=== PATIENT | female | born 1980 | race African-American/Black ===

== ENCOUNTER 2017-12-28 09:27 | Day surgery (SDC) | payer OTHER ==
[2017-12-28] MEDS ORDERED: Acetaminophen 500 MG TAB PO PRN (09:36)
[2017-12-28 10:27] VITALS: BMI 26.0
[2017-12-28] MEDS ORDERED: FLU VACC QS2017-18 36 mo. & older 0.5 ML SYRINGE IM ONE (10:45)
[2017-12-28] MEDS ORDERED: Iron Sucrose Complex 500 MG in Sodium Chloride 0.9% 250 ML 250 ML IVPB SCH (11:00)
== END 2017-12-28 14:30 | disposition home or self-care (01) ==
LOC: L&D 09:27 → L&D/OP 09:27
PROVIDERS: ATTEND Emergency Medicine
DX: O99.019 Anemia complicating pregnancy, unspecified trimester (principal); O09.519 Supervision of elderly primigravida, unspecified trimester; Z3A.00 Weeks of gestation of pregnancy not specified
CPT/HCPCS: J1756; J7050

== ENCOUNTER 2018-01-13 08:52 | Day surgery (SDC) | payer OTHER ==
[2018-01-13] MEDS ORDERED: Acetaminophen 500 MG TAB PO SCH (09:15)
[2018-01-13] MEDS ORDERED: Iron Sucrose Complex 500 MG, Admixture Fee 1 EACH in Sodium Chloride 0.9% 250 ML 250 ML IVPB SCH (09:45)
[2018-01-13] MEDS ORDERED: Iron, Sodium Ferric Gluconate 250 MG, Admixture Fee 1 EACH in Sodium Chloride 0.9% 250 ... IVPB SCH (10:00)
[2018-01-13 10:15] VITALS: BMI 26.5
[2018-01-13 10:41] VITALS: BP 109/69; TEMP 98.7
[2018-01-13] MEDS ORDERED: Sodium Chloride 0.9% 1,000 ML IV SCH (11:15)
--- NOTE | 2018-01-13 14:30 | PDOC.LDHP ---
Labor and Delivery H&P Chief complaint: other (scheduled iron infusion) HPI: Patient is a 37yo [id number] by at 35.3 by 8w u/s presents for iron infusion. Patient was found to have Hg of 8.4 on 01/10 at clinic and scheduled for iron infusion. Patient is taking PO Fe and PNV. Today denies VB, LOF, decreased movement, and vaginal discharge. Reports generalized fatigue. Current gestational age (weeks): 35 (3days) Due date: 02/14/18 Dating criteria: first trimester ultrasound Grav: 7 Para: 6 OB History Details: 6 prior in [facility], no reported complications Current complications: other (anemia of , late to care) Abnormal US findings: No Past Medical History: None Current medications: pre- vitamins, iron Previous surgical history: none Social history: none - Physical Exam Vital signs reviewed and normal: yes General: NAD, resting Heart: RRR Lungs: CTAB Abdomen: NTTP Extremeties: no edema FHT: category 2, variable decelerations, variability present [place] contractions every: baseline 140, moderate varibility, 2 isolated variable decels, +accels - Assessment Patient is a 37yo [id number] by at 35.3 by 8w u/s presents for iron infusion. - Give Fe infusion and continue to monitor. - Patient had 2 isolated variable decelerations, will get BPP to evaluate. <Verenice Rojas - Last Filed: 01/13/18 14:24> <Tommie Song - Last Filed: 02/12/18 13:08> Allergies/Adverse Reactions: Allergies Allergy/AdvReac Type Severity Reaction Status Date / Time No Known Allergies Allergy Verified 02/08/18 11:46 Attending Addendum - Attending Addendum Date/Time: 02/12/18 1305 I personally evaluated the patient and discussed the management with Dr. Rojas on 01/13/18 I agree with the History, Examination, Assessment and Plan documented above with any addition or exceptions noted below. 37yo by at 35.3 by 8w US here for iron infusion for 3rd trimester anemia. <Tommie Song - Last Filed: 02/12/18 13:08>
--- NOTE | 2018-01-13 15:42 | ULT ---
BIOPHYSICAL PROFILE ULTRASOUND EXAMINATION 01/13/18 HISTORY: Variable heart decelerations. COMPARISON: None. FINDINGS: Again noted is a single intrauterine gestation in cephalic presentation. Cardiac doppler demonstrates heart tones with a heart rate ranging from 142 to 145 beats per minute. The placenta is located anteriorly without evidence of placenta previa. The amniotic fluid index measures 9 cm which is within normal limits. Cervical length on translabial evaluation is 3.16 cm. measurements were not obtained and evaluation of anatomical structures was also not perfo rmed on this exam. A biophysical profile score of 2 was obtained each for tone, breathing, movements, and amniotic fluid volume. IMPRESSION: 1. Total biophysical profile score of 8 out of 8. 2. Single intrauterine gestation in cephalic presentation with heart tones documented. 3. Amniotic fluid index of 9 cm. 4. Cervical length is 3.16 cm. POS: [facility]
== END 2018-01-13 15:00 | disposition home or self-care (01) ==
LOC: L&D/OP 08:52
PROVIDERS: ATTEND Family Medicine
DX: O99.013 Anemia complicating pregnancy, third trimester (principal); Z3A.35 35 weeks gestation of pregnancy; Z79.899 Other long term (current) drug therapy
CPT/HCPCS: 76819; 96361; 96365; 96366; 99282; J1756; J2916; J7050

== ENCOUNTER 2018-02-08 11:23 | Inpatient (IN) | payer MEDICAID, OTHER, SELFPAY ==
[2018-02-08] MEDS ORDERED: Penicillin G Potassium 5 MILL.UNITS VIAL ONE (11:40)
[2018-02-08] MEDS ORDERED: Ondansetron HCl/PF 4 MG/2 ML Vial IVP PRN (11:42)
[2018-02-08] MEDS ORDERED: Lidocaine 1% (PF) 30 ML VIAL SC PRN (11:42)
[2018-02-08] MEDS ORDERED: Misoprostol 200 MCG TAB PR PRN (11:42)
[2018-02-08] MEDS ORDERED: Promethazine HCl 25 MG/ML VIAL IM PRN (11:42)
[2018-02-08] MEDS ORDERED: Ibuprofen 800 MG TAB PO PRN (11:42)
[2018-02-08] MEDS ORDERED: LR / Pitocin 40 units/1000 ml 1,000 ML IV PRN (11:42)
[2018-02-08] MEDS ORDERED: LR / Pitocin 40 units/1000 ml 1,000 ML ONE (11:43)
[2018-02-08] MEDS: Lactated Ringer's 1,000 ML IV SCH ×2 (11:43→23:05)
[2018-02-08] MEDS ORDERED: Penicillin G Potassium 5 MILL.UNITS in Sodium Chloride 0.9% 100 ML IVPB SCH (11:45)
[2018-02-08 12:15] LABS: Mean Corpuscular Hemoglobin 27.7 pg (27.0-31.0); Mean Corpuscular Volume 79.2 fl (81.0-99.0); Mean Platelet Volume 11.1 fL (7.4-10.4); Platelet Count 253 thou/uL (130-400); RBC Distribution Width 26.7 % (11.5-14.5); Red Blood Cell (RBC) Count 3.97 mill/uL (4.20-5.40); White Blood Cell (WBC) Count 7.2 thou/uL (4.8-10.8)
--- NOTE | 2018-02-08 12:21 | PDOC.LDHP ---
Labor and Delivery H&P Chief complaint: contractions, loss of fluid HPI: 37 yo @ 39.1 wks by 8wk US presents with contractions and loss of fluid since 0700 this morning. Denies vaginal bleeding or discharge. Patient was found to have Hg of 8.4 on 01/10 at clinic, s/p two iron transfusions. Current gestational age (weeks): 39 Due date: 02/14/18 Dating criteria: first trimester ultrasound Grav: 7 Para: 6 ([id number]) OB History Details: 6 vaginal deliveries, in the [facility] pt reports no complications, no hx of pph per patient one twin delivery Current complications: other (Anemia of , AMA, grand multiparity) Abnormal US findings: No Past Medical History: Hx of cystitis and vaginal candidiasis Iron deficient Anemia Current medications: pre-estefany vitamins, iron (PO and iron tranfusions) Previous surgical history: none Social history: none - Physical Exam General: NAD, breathing through contractions Heart: RRR Lungs: CTAB Abdomen: gravid Extremeties: no edema FHT: category 2 (minimal variablity), acceleration absent, variable decelerations [place] contractions every: every 3-4 minutes - Vaginal Exam cm dilated: 5 Effacement: 90% Station: -2 - OB Labs Blood type: B RH: positive Antibody Screen: negative HIV: negative RPR: negative 1 hour GCT: negative GBS: positive Rubella: immune - Assessment L&D Assessment: term patient in labor - Plan -: 37 yo @ 39.1 wks by 8wk US presents with contractions and loss of fluid , admitted for active labor and rupture of membranes. Plan: 1. sIUP, in active labor with SROM- Labor checks q2h. Pt does not want blood products or an epidural. Last check /-2 with FHTs in 140s, category 2 strip (moderate variability, one variable deceleration, no accelerations). Hemagram, hebsag, rpr, type and screen ordered. Pt at risk for PPH 2/2 grandmuliparity. We will start fluids (LR @ 125ml/hr). 2. Anemia of -Hemagram ordered. Pt is s/p two iron transfusions with recent Hb of 8.4. She is currently on PO iron as well. 3. Grandmultiparity-at risk for pph. 4. Advanced Maternal Age <Ayana Schroeder - Last Filed: 02/08/18 12:27> <Carlos Ross - Last Filed: 02/08/18 15:16> Allergies/Adverse Reactions: Allergies Allergy/AdvReac Type Severity Reaction Status Date / Time No Known Allergies Allergy Verified 02/08/18 11:46 Attending Addendum - Attending Addendum Date/Time: 02/08/18 3896 I personally evaluated the patient and discussed the management with Dr. Hayes and team. I agree with and repeated the History, Examination, Assessment and Plan documented above with any addition or exceptions noted below. <Carlos Ross - Last Filed: 02/08/18 15:16>
[2018-02-08 12:56] LABS: Syphilis Antibody Nonreactive (Nonreactive); Syphilis Antibody Index 0.06 S/CO (<1.00 Non-Reactive)
[2018-02-08] MEDS ORDERED: Methylergonovine 0.2 MG/ML VIAL ONE (13:06)
[2018-02-08] MEDS ORDERED: FLU VACC QS2017-18 36 mo. & older 0.5 ML SYRINGE IM ONE (13:15)
[2018-02-08 15:26] LABS: HBSAg Index 0.15 S/CO (0-0.99); Hep B Surf Ag Non-Reactive S/CO (NonReactive)
[2018-02-08] MEDS ORDERED: Milk Of Magnesia 30 ML UDCUP PO PRN (16:43)
[2018-02-08] MEDS ORDERED: Adacel (T-DAP) 0.5 ML VIAL IM ONE (16:43)
[2018-02-08] MEDS ORDERED: Lanolin Ointment 7 GM TUBE TOP PRN (16:43)
[2018-02-08] MEDS ORDERED: Bisacodyl 10 MG SUPP PR PRN (16:43)
[2018-02-08] MEDS: Ferrous Sulfate 325 MG TAB PO SCH (18:30)
[2018-02-08] MEDS: Docusate Calcium (SURFAK) 240 MG CAP PO SCH (21:23)
[2018-02-09] MEDS ORDERED: Acetaminophen 325 MG TAB PO PRN (05:08)
[2018-02-09] MEDS ORDERED: Ibuprofen 800 MG TAB PO PRN (05:08)
[2018-02-09 06:04] LABS: Hemoglobin 10.4 g/dL (12.0-16.0); Mean Corpuscular HGB CONC 34.1 g/dL (32.0-36.0); Mean Corpuscular Hemoglobin 27.2 pg (27.0-31.0); Mean Corpuscular Volume 79.9 fl (81.0-99.0); Mean Platelet Volume 10.9 fL (7.4-10.4); Platelet Count 242 thou/uL (130-400); RBC Distribution Width 26.2 % (11.5-14.5); Red Blood Cell (RBC) Count 3.82 mill/uL (4.20-5.40); White Blood Cell (WBC) Count 10.2 thou/uL (4.8-10.8)
[2018-02-09] MEDS: Lactated Ringer's 1,000 ML IV SCH (06:07)
[2018-02-09] MEDS: Penicillin G 2.5 MILL.units 2.5 MILL.UNITS in Premix Bag 1 BAG IVPB SCH ×3 (06:07→14:31)
--- NOTE | 2018-02-09 06:43 | PDOC.OPDEL ---
OB Operative/Delivery Note Delivery Dr/Surgeon: Abigail/Joe/Vandana Pre-Delivery Diagnosis: active labor, ruptured membrane Procedure/Post Delivery Dx: spontaneous vaginal delivery (occurred at 1335.) Weeks gestation: 39 (39.1 by 8 wk US) Anesthesia: none - Findings A Sex: female Weight: 2.931 kg - 1 min: 8 - 5 min: 9 - Additional Findings/Plan Placenta delivered: spontaneous Repaired Obstetrical Laceration: none Estimated blood loss: 200 ml Compilations/Other Findings: None. Post delivery plan: routine recovery
--- NOTE | 2018-02-09 06:47 | PDOC.PP ---
Post Progress Note Post Day #: 1 Subjective: pain controlled. No concerns overnight. Would like to go home today. Explained that it is hospital protocol to monitor babies with inadequate GBS PPx for 48 hours. Expressed understanding. PO intake tolerated: yes Flatus: yes Ambulation: yes Vital Signs (12 hours) Temp Pulse Resp BP BP Pulse Ox 02/09/18 05:10 99.2 F 77 18 95/63 02/08/18 23:45 97.8 F 86 20 114/62 02/08/18 20:00 98.1 F 86 18 122/63 95 Weight Weight 145 g - Physical Examination General: NAD Cardiovascular: no m/r/g, RRR Respiratory: clear to auscultation bilaterally, non-labored breathing Abdominal: + bowel sounds, lochia, no distention, appropriately TTP Fundus firm & at: umbilicus Extremities: negative homans (B) Neurological: no gross focal deficits Psychiatric: A&Ox3, normal affect Result Diagrams: 02/09/18 05:09 Additional Labs: Post Labs Blood Type B POSITIVE 02/08/18 11:45 Hep Bs Antigen Non-Reactive S/CO (NonReactive) 02/08/18 11:45 (1) Term delivered Code(s): O80 - ENCOUNTER FOR FULL-TERM UNCOMPLICATED DELIVERY Status: Acute Comment: PP course uncomplicated thus far. pain is controlled. Will keep overnight to monitor baby since inadequate GBS PPx. (2) GBS carrier Code(s): Z22.330 - CARRIER OF GROUP B STREPTOCOCCUS Status: Acute Comment: s /p 1 dose PCN. (3) Anemia affecting Code(s): O99.019 - ANEMIA COMPLICATING , UNSPECIFIED TRIMESTER Status : Acute QualifierTitle: Trimester: unspecified trimester Qualified Code(s): O99.019 - Anemia complicating , unspecified trimester Comment: s/p 2 iron infussions during 3T. Will continue iron supplemenation since she is likely systemically depleted. <Jessee Diaz - Last Filed: 02/09/18 06:44> Weight Weight 145 g Result Diagrams: 02/09/18 05:09 Additional Labs: Post Labs Blood Type B POSITIVE 02/08/18 11:45 Hep Bs Antigen Non-Reactive S/CO (NonReactive) 02/08/18 11:45 <Carlos Ross - Last Filed: 02/11/18 15:51>
[2018-02-09] MEDS: Ferrous Sulfate 325 MG TAB PO SCH ×2 (08:51→17:27)
[2018-02-09] MEDS: Docusate Calcium (SURFAK) 240 MG CAP PO SCH ×2 (08:51→21:16)
[2018-02-09] MEDS: Prenatal Vitamin 1 TAB PO SCH (08:51)
[2018-02-09] MEDS: Ibuprofen 800 MG TAB PO SCH ×3 (14:38→21:17)
[2018-02-10] MEDS: Ibuprofen 800 MG TAB PO SCH ×4 (02:46→14:17)
--- NOTE | 2018-02-10 07:28 | PDOC.PP ---
Post Progress Note Post Day #: 2 Subjective: ready for d/c. has been co-sleeping and counseled extensively by nursing staff. Not co-sleeping at time of exam. pain controlled. PO intake tolerated: yes Flatus: yes Ambulation: yes Vital Signs (12 hours) Temp Pulse Resp BP 02/09/18 20:00 98.9 F 82 20 117/54 L Weight Weight 145 g - Physical Examination General: NAD Cardiovascular: no m/r/g, RRR Respiratory: clear to auscultation bilaterally, non-labored breathing Abdominal: + bowel sounds, lochia, no distention, appropriately TTP Fundus firm & at: 2 cm below umbilicus Extremities: negative homans (B) Skin: CS incision dry & intact, no rash Neurological: no gross focal deficits Psychiatric: A&Ox3, normal affect Result Diagrams: 02/09/18 05:09 Additional Labs: Post Labs Blood Type B POSITIVE 02/08/18 11:45 Hep Bs Antigen Non-Reactive S/CO (NonReactive) 02/08/18 11:45 (1) Term delivered Code(s): O80 - ENCOUNTER FOR FULL-TERM UNCOMPLICATED DELIVERY Status: Acute Comment: PP course uncomplicated thus far. pain is controlled. d/c today (2) GBS carrier Code(s): Z22.330 - CARRIER OF GROUP B STREPTOCOCCUS Status: Acute Comment: s /p 1 dose PCN. (3) Anemia affecting Code(s): O99.019 - ANEMIA COMPLICATING , UNSPECIFIED TRIMESTER Status : Acute QualifierTitle: Trimester: unspecified trimester Qualified Code(s): O99.019 - Anemia complicating , unspecified trimester Comment: s/p 2 iron infussions during 3T. Will continue iron supplemenation since she is likely systemically depleted. <Jessee Diaz - Last Filed: 02/10/18 07:26> Vital Signs (12 hours) Temp Pulse Resp BP 02/10/18 08:34 98.9 F 75 20 169/82 H 02/10/18 08:00 98.9 F 75 20 Weight Weight 145 g Result Diagrams: 02/09/18 05:09 Additional Labs: Post Labs Blood Type B POSITIVE 02/08/18 11:45 Hep Bs Antigen Non-Reactive S/CO (NonReactive) 02/08/18 11:45 <Carlos Ross - Last Filed: 02/10/18 11:35> Attending Addendum - Attending Addendum Date/Time: 02/10/18 3591 I personally evaluated the patient and discussed the management with Dr. Diaz and team. I agree with and repeated the History, Examination, Assessment and Plan documented above with any addition or exceptions noted below. Ok for discharge. Continue iron supplementation. <Carlos Ross - Last Filed: 02/10/18 11:35>
[2018-02-10] MEDS: Prenatal Vitamin 1 TAB PO SCH (08:47)
[2018-02-10] MEDS: Ferrous Sulfate 325 MG TAB PO SCH (08:47)
[2018-02-10] MEDS: Docusate Calcium (SURFAK) 240 MG CAP PO SCH (08:47)
[2018-02-10 11:59] VITALS: BP 137/86; TEMP 98.2
== END 2018-02-10 17:00 | disposition home or self-care (01) | DRG 775 ==
LOC: L&D/OP 11:23 → L&D 13:41 → 3SW 16:32
PROVIDERS: ADMIT Emergency Medicine; ATTEND Emergency Medicine
PROC: 10E0XZZ Delivery of Products of Conception, External Approach (ICD-10-PCS; principal; 2018-02-08)
PROC: 3E0P7VZ Introduction of Hormone into Female Reproductive, Via Natural or Artificial Opening (ICD-10-PCS; 2018-02-08)
DX: O99.02 Anemia complicating childbirth (principal); O99.824 Streptococcus B carrier state complicating childbirth; Z37.0 Single live birth; Z3A.39 39 weeks gestation of pregnancy
CPT/HCPCS: 36415; 76815; 85027; 86780; 86850; 86900; 86901; 87340; 99285; J2210; J2540

== ENCOUNTER 2020-09-10 08:54 | Outpatient (CLI) | payer BC ==
--- NOTE | 2020-09-10 09:18 | RAD ---
EXAM: Chest 2 views: HISTORY: Costochondritis COMPARISON: None. FINDINGS: There is a normal-sized cardiomediastinal silhouette. There is no evidence of consolidation, mass, or pleural effusion. No acute osseous abnormality. IMPRESSION: No evidence of acute cardiopulmonary disease
== END 2020-09-10 08:55 | disposition home or self-care (01) ==
LOC: BICRAD 08:54
PROVIDERS: ATTEND Nurse Practitioner Family
DX: M94.0 Chondrocostal junction syndrome [Tietze] (principal)
CPT/HCPCS: 71046